=== PATIENT | male | born 1975 | race Hispanic/Latino ===

== ENCOUNTER 2022-04-06 12:49 | Emergency (ER) | payer OTHER, SELFPAY ==
[2022-04-06 13:07] VITALS: BP 111/67; PULSE 62; RESP 16; TEMP 36.6; O2SAT 99
--- NOTE | 2022-04-06 14:02 | ED.ABDPAIN ---
HPI - Abdominal Pain General Chief Complaint: Ear Stated Complaint: Abdominal Pain,Ear Pressure Time Seen by Provider: 04/06/22 14:02 Source: patient Mode of arrival: ambulatory Limitations: no limitations History of Present Illness HPI narrative: 46-year-old male presents with complaint of headache, ear pressure, congestion, cough, fatigue, chills and fever since yesterday. States that he reports yesterday he was diaphoretic. Mild nausea which has since resolved. No abdominal pain, no diarrhea. Denies chest pain and shortness of breath. Not taking any [id number] medications to treat his symptoms other than Tylenol for fever. No known COVID exposure. All systems reviewed and negative except as noted above. Related Data Home Medications Medication Instructions Recorded Confirmed atenolol 25 mg tablet tablet 04/06/22 fluoxetine 20 mg capsule cap 04/06/22 Allergies Allergy/AdvReac Type Severity Reaction Status Date / Time No Known Allergies Allergy Unknown Unverified 08/11/14 11:52 Review of Systems Review of Systems: CONSTITUTIONAL: Reports fever, chills, or sweats. EYES: Denies visual changes, redness, or discharge. ENT: Reports rhinorrhea, congestion, ear pressure. Denies sore throat. CARDIOVASCULAR: Denies chest pain, palpitations, or edema. RESPIRATORY: Reports cough. Denies dyspnea. GASTROINTESTINAL: Denies abdominal pain, nausea, vomiting, or diarrhea. GENITOURINARY: Denies dysuria or hematuria. SKIN: Denies rash or itching. MUSCULOSKELETAL: Denies back pain, joint pain, or myalgia. NEUROLOGIC: Reports headache. Denies numbness, or weakness. PSYCHIATRIC: Denies anxiety or depression. All other systems reviewed are negative, except as documented in HPI. PMFSH Comments At time of signature, agree with nursing past medical, surgical, social and family history. There is no relevant family history pertinent to the presenting complaint. Exam Narrative: GENERAL: This is a well-nourished, well-developed patient, in no apparent distress. HEAD: normocephalic, atraumatic. EYES: PERRL. Sclera clear/white. Vision is grossly intact. EARS: External ears normal, auditory canals clear and without drainage, TMs normal without perforation. Hearing grossly intact. NOSE: External nose normal with clear nasal drainage. No erythema to nares. THROAT: Mucous membranes moist, erythema and swelling to posterior pharynx. NECK: Neck supple, non-tender without lymphadenopathy, masses or thyromegaly. CARDIOVASCULAR: Regular rate and rhythm without murmurs, gallops, or rubs. RESPIRATORY: Clear to auscultation. Breath sounds equal bilaterally. No wheezes, rales, or rhonchi. SKIN: warm, Dry, intact with no suspicious lesions or rash, good texture and turgor. NEURO: awake, alert, and oriented to person, place and time. There were no obvious focal neurologic abnormalities. EXTREMITIES: No joint tenderness, effusion, or edema noted. Course Course Level of Care: Express Care Visit Vital Signs Vital signs: Vital Signs Temperature 36.6 C 04/06/22 13:07 Pulse Rate 62 04/06/22 13:07 Respiratory Rate 16 04/06/22 13:07 Blood Pressure 111/67 04/06/22 13:07 Pulse Oximetry 99 04/06/22 13:07 Oxygen Delivery Room Air 04/06/22 13:07 Temperature 36.6 C 04/06/22 13:07 Pulse Rate 62 04/06/22 13:07 Respiratory Rate 16 04/06/22 13:07 Blood Pressure 111/67 04/06/22 13:07 Pulse Oximetry 99 04/06/22 13:07 Oxygen Delivery Room Air 04/06/22 13:07 Reviewed MDM - Abdominal Pain MDM Narrative Medical decision making narrative: Negative COVID and influenza test. Patient denied sore throat so strep was not completed. Recommend that patient repeat his COVID test in 48 hours with a home test. Recommend [id number] medications to treat his symptoms. Patient is aware of diagnosis, understands and agrees to treatment plan. Anticipatory guidance given. Patient agrees to follow-up as directed an
== END 2022-04-06 15:13 | disposition home or self-care (01) ==
PROVIDERS: Emergency Provider Nurse Practitioner Family; PCP Registered Nurse
DX: B34.9 Viral infection, unspecified (principal); H69.93 Unspecified Eustachian tube disorder, bilateral; Z20.822 Contact with and (suspected) exposure to COVID-19; E78.00 Pure hypercholesterolemia, unspecified; I34.1 Nonrheumatic mitral (valve) prolapse
CPT/HCPCS: 87426; 87804; 99213; C9803; G0463